=== PATIENT | female | born 1950 | race Caucasian/White ===

== ENCOUNTER 2020-10-03 19:40 | Emergency (ER) | payer OTHER ==
[~2020-10-03] VITALS: Ht 172.7 cm; Wt 74.8 kg
[2020-10-03] MEDS ORDERED: EZALLOR SPRINKLE5 MG PO (19:57)
[2020-10-03] MEDS ORDERED: PRINIVIL20 M1 PO (19:57)
[2020-10-03] MEDS ORDERED: NAMENDA 10 MG T10 MG PO (19:58)
[2020-10-03] MEDS ORDERED: B12 ACTIVE1000 MCG PO (19:58)
[2020-10-03] MEDS ORDERED: ARICEPT10 M1 PO (19:58)
[2020-10-03] MEDS ORDERED: VITAMIN D-40010 MCG PO (19:59)
[2020-10-03] MEDS ORDERED: HYDROCODON-ACE1 EAC7 PO ×3 (21:00→21:15)
[2020-10-03 21:25] VITALS: BP 166/66
== END 2020-10-03 21:25 | disposition home or self-care (01) ==
LOC: M.ERS 19:40
DX: S42.002A Fracture of unspecified part of left clavicle, initial encounter for closed fracture (principal); M19.90 Unspecified osteoarthritis, unspecified site; G89.29 Other chronic pain; I10 Essential (primary) hypertension; E03.9 Hypothyroidism, unspecified; E11.9 Type 2 diabetes mellitus without complications; Z88.6 Allergy status to analgesic agent; Z88.8 Allergy status to other drugs, medicaments and biological substances; W01.0XXA Fall on same level from slipping, tripping and stumbling without subsequent striking against object, initial encounter; Y93.89 Activity, other specified; Y92.89 Other specified places as the place of occurrence of the external cause; Y99.8 Other external cause status